=== PATIENT | male | born 1985 | race Two or more races ===

== ENCOUNTER 2019-03-15 12:52 | Emergency (ER) | payer SELFPAY ==
[2019-03-15] MEDS ORDERED: ASPIRIN 81 MG TABLET, CHEWABLE PO ONE (13:36)
--- NOTE | 2019-03-15 13:37 | ER Document Report ---
ED Medical Screen (RME) - General Chief Complaint: Breathing Difficulty Stated Complaint: DIFFICULTY BREATHING Time Seen by Provider: 03/15/19 13:33 Information source: Patient Notes: Patient presents complaining of difficulty breathing for the past 2 to 3 weeks. Patient reports occasional chest pain that radiates through to his back. Patient states that he did have an episode where he was diaphoretic. Patient de nies any chronic medical problems I have greeted and performed a rapid initial assessment of this patient. A comprehensive ED assessment and evaluation of the patient, analysis of test results and completion of the medical decision making process will be conducted by additional ED providers. - Related Data Allergies/Adverse Reactions: No Known Allergies Allergy (Verified 03/15/19 13:31) Physical Exam - Vital signs Vitals: Temp Pulse Resp BP Pulse Ox 98.1 F 75 18 148/91 H 98 03/15/19 12:55 03/15/19 12:55 03/15/19 12:55 03/15/19 12:55 03/15/19 12:55 - Respiratory Respiratory status: No respiratory distress Breath sounds: Normal. No: Nonproductive cough, Productive cough Course - Vital Signs Vital signs: Temp Pulse Resp BP Pulse Ox 98.1 F 75 18 148/91 H 98 03/15/19 12:55 03/15/19 12:55 03/15/19 12:55 03/15/19 12:55 03/15/19 12:55
[2019-03-15 14:59] LABS: ABSOLUTE EOSINOPHILS # (AUTO) 0.1 10^3/uL (0.0-0.6); ABSOLUTE MONOCYTES (AUTO) 0.4 10^3/uL (0.1-1.4); ABSOLUTE NEUT (AUTO) 3.4 10^3/uL (1.7-8.2); BASOPHILS % (AUTO) 0.4 % (0-2); EOSINOPHILS % (AUTO) 2.3 % (0-6); HEMATOCRIT 43.1 % (37.9-51.0); HEMOGLOBIN 15.1 g/dL (13.5-17.0); LYMPHOCYTES % (AUTO) 33.8 % (13-45); MEAN CORPUSCULAR HEMOGLOBIN 30.5 pg (27.0-33.4); MEAN CORPUSCULAR VOLUME 87 fl (80-97); MONOCYTES % (AUTO) 5.9 % (3-13); PLATELET COUNT 199 10^3/uL (150-450); RED BLOOD COUNT 4.94 10^6/uL (4.35-5.55); SEGMENTED NEUTROPHILS % (AUTO) 57.6 % (42-78); TOTAL CELLS COUNTED % (AUTO) 100 %
[2019-03-15 15:16] LABS: ALBUMIN 4.3 g/dL (3.5-5.0); ALKALINE PHOSPHATASE 71 U/L (38-126); ANION GAP 9 (5-19); ASPARTATE AMINO TRANSFERASE 30 U/L (17-59); BILIRUBIN,TOTAL 0.4 mg/dL (0.2-1.3); BLOOD UREA NITROGEN 18 mg/dL (7-20); CARBON DIOXIDE 30 mmol/L (22-30); CHLORIDE 102 mmol/L (98-107); GLUCOSE 136 mg/dL (75-110); POTASSIUM 4.7 mmol/L (3.6-5.0); TOTAL PROTEIN 7.4 g/dL (6.3-8.2)
--- NOTE | 2019-03-15 15:25 | RADIOLOGY REPORT (SQ) ---
EXAM DESCRIPTION: CHEST 2 VIEWS COMPLETED DATE/TIME: 03/15/2019 3:11 pm REASON FOR STUDY: cp, diff breathing COMPARISON: None. EXAM PARAMETERS: NUMBER OF VIEWS: two views TECHNIQUE: Digital Frontal and Lateral radiographic views of the chest acquired. RADIATION DOSE: NA LIMITATIONS: none FINDINGS: LUNGS AND PLEURA: No opacities, masses or pneumothorax. No pleural effusion. MEDIASTINUM AND HILAR STRUCTURES: No masses or contour abnormalities. HEART AND VASCULAR STRUCTURES: Heart normal size. No evidence for failure. BONES: No acute findings. HARDWARE: None in the chest. OTHER: No other significant finding. IMPRESSION: NO ACUTE RADIOGRAPHIC FINDING IN THE CHEST. TECHNICAL DOCUMENTATION: JOB ID: [id number]- All Rights Reserved Reading location - IP/workstation name: [email or web address]
--- NOTE | 2019-03-15 17:24 | ER Document Report ---
ED General - General Chief Complaint: Shortness Of Breath Stated Complaint: DIFFICULTY BREATHING Time Seen by Provider: 03/15/19 13:33 Notes: 33 year old male resents to the ED complaining of difficulty breathing. States that he has has 2 episodes in the past 3 weeks where it has been in the middle of the night and he feels like he cannot breathe. Patient states that simply feels like his lungs will not fully expand and that he cannot draw a deep breath. He also states that he feels quite nervous at the time and like maybe he needs to run around to get rid of the nerves of the anxiety. It does not happen with exertion or any other times. Patient has no prior history of anxiety. Patient does not have any current chest pain and does not have any when it is happening. TRAVEL OUTSIDE OF THE [place] IN LAST 30 DAYS: No - Related Data Allergies/Adverse Reactions: No Known Allergies Allergy (Verified 03/15/19 13:31) Past Medical History - General Information source: Patient - Social History Smoking Status: Never Smoker Chew tobacco use (# tins/day): No Frequency of alcohol use: None Drug Abuse: None Family History: Reviewed & Not Pertinent Patient has suicidal ideation: No Patient has homicidal ideation: No Review of Systems - Review of Systems Constitutional: No symptoms reported EENT: No symptoms reported Cardiovascular: See HPI Respiratory: See HPI Neurological/Psychological: See HPI, Anxiety -: Yes All other systems reviewed and negative Physical Exam - Vital signs Vitals: Temp Pulse Resp BP Pulse Ox 98.1 F 75 18 148/91 H 98 03/15/19 12:55 03/15/19 12:55 03/15/19 12:55 03/15/19 12:55 03/15/19 12:55 Interpretation: Hypertensive - Notes Notes: GENERAL: Alert, interacts well. No acute distress. HEAD: Normocephalic, atraumatic EYES: Pupils equal, round and reactive to light, extraocular movements intact. ENT: Oral mucosa moist, tongue midline. Nares are patent, slight turbinate edema, clear rhinorrhea. NECK: Full range of motion, supple, trachea midline. LUNGS: Clear to auscultation bilaterally, no wheezes, rales or rhonchi, no resp iratory distress. HEART: Regular rate and rhythm, no murmurs, gallops, rubs. Sternal tenderness to palpation. ABDOMEN: Soft, nontender, nondistended, bowel sounds present in all 4 quadrants. EXTREMITIES: Moves all 4 extremities spontaneously, no edema, radial and dorsalis pedis pulses 2/4 bilaterally. No cyanosis. NEUROLOGICAL: Alert and oriented x3, normal speech. PSYCH: Normal mood, normal affect. SKIN: Warm, Dry, normal turgor, no rashes or lesions noted. Course - Re-evaluation Re-evalutation: 03/15/19 17:22 CBC unremarkable, slightly elevated glucose on nonfasting CMP, troponin negative. Chest x-ray unremarkable. Discussed with patient that I would like him to have a Holter monitor placed to make sure that he is not having arrhythmias in the middle of night that are waking him up. He could also consider sleep study for sleep apnea. Currently no concern for ischemic coronary artery disease. Patient will be discharged to home. - Vital Signs Vital signs: Temp Pulse Resp BP Pulse Ox 98.1 F 75 18 148/91 H 98 03/15/19 12:55 03/15/19 12:55 03/15/19 12:55 03/15/19 12:55 03/15/19 12:55 - Laboratory Result Diagrams: 03/15/19 14:45 03/15/19 14:45 Laboratory results interpreted by me: 03/15/19 14:45 Glucose 136 H - EKG Interpretation by Me Additional EKG results interpreted by me: 03/15/19 17:23 EKG shows sinus rhythm at a rate of 74, normal axis, normal intervals, no ST segment elevations or depressions, no T wave inversions per my interpretation. Discharge - Discharge Clinical Impression: Shortness of breath at rest Condition: Stable Disposition: HOME, SELF-CARE Additional Instructions: Today we did not find any signs of a heart attack however I would like you to have a Holter monitor or an event monitor to make sure that you are not having abnormal heart rhythms that are waking you up in the middle of the night and making you feel like you cannot breathe. You may also wish to consider having a sleep study performed to look for sleep apnea. If these occur during the day when you are wide-awake or if they worsen when you are walking around I would like you to return to the emergency department. Please return to the emergency department for any new or concerning symptoms. Referrals: ANGELICA HOLLINGSWORTH MD [ACTIVE STAFF] - Follow up as needed
[2019-03-15 18:02] VITALS: BP 150/92
--- NOTE | 2019-03-16 00:50 | EKG REPORT ---
SEVERITY:- NORMAL ECG - SINUS RHYTHM : Confirmed by: Augustin Argueta 16-Mar-2019 00:49:16
== END 2019-03-15 17:58 | disposition home or self-care (01) ==
LOC: EDBD → ER 12:52
DX: R06.02 Shortness of breath (principal); F41.9 Anxiety disorder, unspecified
CPT/HCPCS: 36415; 71046; 80053; 84484; 85025; 93005; 93010; 99285